=== PATIENT | female | born 1950 | race Hispanic/Latino ===

== ENCOUNTER 2021-06-20 19:57 | Emergency (ER) | payer MEDICARE ==
[~2021-06-20] VITALS: Ht 162.6 cm; Wt 89.8 kg
[2021-06-20 21:24] VITALS: BP 142/63
[2021-06-20] MEDS ORDERED: IBUP-2784 PO (21:46)
== END 2021-06-20 21:58 | disposition home or self-care (01) ==
LOC: EDH 19:57
DX: M13.841 Other specified arthritis, right hand (principal); I11.0 Hypertensive heart disease with heart failure; E11.9 Type 2 diabetes mellitus without complications
CPT/HCPCS: 29125; 73120

== ENCOUNTER 2022-08-17 16:27 | Emergency (ER) | payer MEDICARE ==
[~2022-08-17] VITALS: Ht 162.6 cm; Wt 88.5 kg
[~2022-08-17 16:27] MED LIST: IBUP-2784 PO
[2022-08-17 16:50] LABS: BASOPHILS % (AUTO) 0.6 % (0.0-5.0); EOSINOPHILS % (AUTO) 3.3 % (0.0-8.0); HEMATOCRIT 37.1 % (36-48); LYMPHOCYTES % (AUTO) 40.1 % (21.0-51.0); MEAN CORPUSCULAR HEMOGLOBIN 32.1 pg (27.0-33.0); MEAN CORPUSCULAR HGB CONC 32.9 g/dL (32.0-36.0); MEAN CORPUSCULAR VOLUME 97.6 fL (79-99); MONOCYTES % (AUTO) 12.1 % (3.0-13.0); NEUTROPHILS % (AUTO) 43.6 % (40.0-77.0); PLATELET COUNT (AUTO) 218 K/uL (130-400); RED CELL DISTRIBUTION WIDTH 12.3 % (11.0-15.5); WHITE BLOOD COUNT (AUTO) 6.8 K/uL (4.8-10.8)
[2022-08-17 17:00] LABS: CREATININE 0.8 mg/dL (0.5-1.5); POTASSIUM 4.6 mmol/L (3.5-5.1)
[2022-08-17] MEDS ORDERED: GABAPENTIN 300 MG CAPSULE PO SCH (17:00)
[2022-08-17 17:08] LABS: ALBUMIN 3.4 g/dL (3.5-5.0)
[2022-08-17 18:09] LABS: APPEARANCE,URINE CLEAR (CLEAR); BILIRUBIN,URINE NEGATIVE (NEGATIVE); COLOR,URINE COLORLESS (YELLOW); GLUCOSE, URINE (UA) NEGATIVE (NEGATIVE); KETONES,URINE NEGATIVE (NEGATIVE); LEUKOCYTE ESTERASE ,URINE NEGATIVE Leu/uL (NEGATIVE); NITRATE,URINE NEGATIVE (NEGATIVE); OCCULT BLOOD,URINE NEGATIVE (NEGATIVE); PH,URINE 5.5 (5.0-8.0); PROTEIN,URINE NEGATIVE (NEGATIVE); UROBILINOGEN,URINE 0.2 mg/dL (0.2-1.0)
[2022-08-17] MEDS ORDERED: GABA300S PO (18:17)
[2022-08-17] MEDS ORDERED: ACYC400T20 PO (18:17)
[2022-08-17 18:23] VITALS: BP 142/68
== END 2022-08-17 18:40 | disposition home or self-care (01) ==
LOC: EDH 16:27
DX: R07.89 Other chest pain (principal); B02.9 Zoster without complications; I10 Essential (primary) hypertension; E11.9 Type 2 diabetes mellitus without complications; M06.9 Rheumatoid arthritis, unspecified
CPT/HCPCS: 36415; 71045; 80053; 81003; 84484; 85025; 93005